=== PATIENT | female | born 1930 | race Caucasian/White ===

== ENCOUNTER 2017-08-11 13:26 | Inpatient (IN) | payer MEDICARE ==
[2017-08-11 14:25] LABS: #Basophils 0.1 thou/uL (0.0-0.2); #Eosinphils 0.2 thou/uL (0.0-0.7); #Lymphocytes 1.6 thou/uL (1.20-3.40); #Monocytes 0.8 thou/uL (0.11-0.59); #Neutrophils 8.4 thou/uL (1.40-6.50); %Basophils 0.9 % (0.0-1.0); %Eosinophils 1.4 % (0.0-10.0); %Lymphocytes 14.3 % (21.0-51.0); %Monocytes 7.5 % (0.0-10.0); %Neutrophils 75.9 % (42.0-75.0); Hemoglobin 12.1 g/dL (12.0-16.0); Mean Corpuscular HGB CONC 33.8 g/dL (32.0-36.0); Mean Corpuscular Hemoglobin 31.2 pg (27.0-31.0); Mean Corpuscular Volume 92.3 fl (81.0-99.0); Mean Platelet Volume 6.3 fL (7.4-10.4); Platelet Count 315 thou/uL (130-400); RBC Distribution Width 13.1 % (11.5-14.5); Red Blood Cell (RBC) Count 3.88 mill/uL (4.20-5.40); White Blood Cell (WBC) Count 11.1 thou/uL (4.8-10.8)
[2017-08-11 14:51] LABS: ALT (SGPT) 7 U/L (8-55); AST (SGOT) 19 U/L (5-34); Albumin 3.6 g/dL (3.4-4.8); Alkaline Phosphatase 183 U/L (40-150); Anion Gap 18 mmol/L (10-20); BUN (Urea Nitrogen) 35 mg/dL (9.8-20.1); Bilirubin, Total 0.4 mg/dL (0.2-1.2); Calc. Creatinine Clearance 0 mL/min (70-130); Calcium 9.4 mg/dL (7.8-10.44); Carbon Dioxide 22 mmol/L (23-31); Chloride 97 mmol/L (98-107); Estimated GFR-MDRD 26; Globulin 4.6 g/dL (2.4-3.5); Glucose 126 mg/dL (83-110); Potassium 4.6 mmol/L (3.5-5.1); Protein, Total 8.2 g/dL (6.0-8.3); Sodium 132 mmol/L (136-145)
[2017-08-11 14:56] LABS: CKMB 2.5 ng/mL (0-6.6); Troponin I 0.076 ng/mL (< 0.028)
[2017-08-11 14:57] LABS: Bilirubin Moderate (Negative); Blood, Urine Negative (Negative); Clarity CLOUDY (Clear); Glucose, Urine (Dipstick) Negative (Negative); Leukocyte Negative (Negative); Nitrite Negative (Negative); Protein, Urine (Dipstick) 30 mg/dL (Neg-Trace); Specific Gravity, Urine 1.019 (1.002-1.036)
[2017-08-11 14:58] LABS: Bacteria/HPF None Seen HPF (None Seen)
[2017-08-11 15:04] LABS: Yeast-AUWi Flag 93.3 (0-25.0)
[2017-08-11 15:15] LABS: Hyaline Casts/LPF 4-6 HYALINE CAST LPF (0-3 Hyaline); Other Casts/LPF 4-6 COARSE GRAN LPF (0-3 Hyaline); Yeast-All Forms None Seen HPF (None Seen)
[2017-08-11 15:16] LABS: Crystals/HPF 1+ AMORPH URATES HPF (Negative); Renal Epithelial None Seen HPF (0-3); Transitional Epithelial NONE SEEN HPF (0-3)
--- NOTE | 2017-08-11 15:19 | RAD ---
CHEST 1 VIEW: Date: 08/11/17 HISTORY: Weakness. FINDINGS: Cardiac silhouette and pulmonary vasculature are unremarkable. Lungs are hyperinflated. Mediastinum i s midline with aortic calcification. There is no lobar consolidation or evidence of pneumothorax. Car diac monitor leads overlie the chest. IMPRESSION: 1. COPD. 2 Atherosclerosis. POS: [facility]
[2017-08-11 18:12] LABS: Troponin I 0.077 ng/mL (< 0.028)
[2017-08-11] MEDS ORDERED: Sodium Chloride 0.9% 1,000 ML IV SCH (20:44)
[2017-08-11] MEDS ORDERED: Ondansetron ODT 4 MG TAB SL PRN (20:44)
[2017-08-11] MEDS ORDERED: Ondansetron HCl/PF 4 MG/2 ML Vial IVP PRN ×2 (20:44→20:50)
[2017-08-11 20:46] LABS: Troponin I 0.077 ng/mL (< 0.028)
[2017-08-11] MEDS ORDERED: Morphine 4 MG/ML VIAL SLOW IVP PRN (20:50)
[2017-08-11] MEDS ORDERED: Zolpidem Tartrate 5 MG TAB PO PRN (20:50)
[2017-08-11] MEDS ORDERED: Famotidine/PF 20 mg/2ml Vial SLOW IVP SCH (21:00)
[2017-08-11] MEDS: Sodium Chloride 0.9% 1,000 ML IV SCH (21:27)
[2017-08-11] MEDS: Docusate 100 MG CAP PO SCH (21:27)
[2017-08-11] MEDS: Famotidine 20 MG TAB PO SCH (21:27)
[2017-08-11 23:10] VITALS: BMI 13.1
[2017-08-12] MEDS: Sodium Chloride 0.9% 1,000 ML IV SCH ×2 (04:23→16:16)
[2017-08-12 05:40] LABS: Anion Gap 10 mmol/L (10-20); BUN (Urea Nitrogen) 25 mg/dL (9.8-20.1); Calc. Creatinine Clearance 16 mL/min (70-130); Calcium 8.6 mg/dL (7.8-10.44); Carbon Dioxide 25 mmol/L (23-31); Chloride 105 mmol/L (98-107); Estimated GFR-MDRD 36; Glucose 79 mg/dL (83-110); Potassium 4.2 mmol/L (3.5-5.1); Sodium 136 mmol/L (136-145)
--- NOTE | 2017-08-12 07:58 | HP ---
HISTORY OF PRESENT ILLNESS: Mrs. Soto is an 86-year-old woman. She has been experiencing some poor appetite, generalized weakness for the last 2 week also. This morning, she was even weake r. She was brought to the ER by her niece. She was evaluated and was noticed to be very dehydrated. In view of this fact, she has been admitted for management. PAST MEDICAL HISTORY: Remarkable for rheumatoid arthritis. She denies any hypertension, diabetes, h eart disease, lung disease, liver disease. She had multiple surgeries most of them in the orthopedic setting. ALLERGIES: She claims to have allergy to ACETAMINOPHEN. SOCIAL HISTORY: She does have a past history of cigarette smoking. She denies ETOH abuse. Denies d rug abuse. FAMILY HISTORY: Reviewed and is not contributory. MEDICATIONS: Prior to admission she was on Aleve and also she takes low dose aspirin daily. REVIEW OF SYSTEMS: CONSTITUTIONAL: She denies any fever. Admits to generalized weakness. HEENT: No headache, no ocular pain, no sore throat. no epistaxis. NECK: No neck pain, no neck stiffness. CARDIOVASCULAR: No shortness of breath with chest pain. PULMONARY: No coughing. GASTROINTESTINAL: No nausea, no vomiting, no diarrhea. GENITOURINARY: No dysuria, no hematuria. ENDOCRINOLOGY: No heat or cold intolerance. No polyuria, polydipsia, polyphagia. MUSCULOSKELETAL: Admits to arthritis. HEMATOLOGY: No abnormal bleeding, no ecchymosis. LYMPHATICS: No palpable lymphadenopathy, no painful lymphadenopathy. SKIN: No rash, no itching. ALLERGIES: No hayfever. NEUROLOGICAL: No seizure. PSYCHIATRIC: No anxiety or no depression. PHYSICAL EXAMINATION: GENERAL: At the current time, she is alert, responsive, comorbidities in no distress. VITAL SIGNS: Temperature of 98, pulse rate 72 regular, respiratory rate 18, and blood pressure 177/9 4. HEENT: Her head is normocephalic and atraumatic. Eyes: Her pupils are equal and reactive. Ears an d Nose: normal. Oral mucosa is somewhat dry. SKIN: She has also had poor skin turgor. Pharyngeal area is clear. NECK: Supple. There is no distention of the jugular vein. No lymphadenopathy felt. Thyroid gland not palpable. There is no carotid bruit. CHEST: Symmetrical with regular S1 and S2. LUNGS: Clear. ABDOMEN: Soft. Bowel sounds are heard. Could not appreciate any organomegaly. LYMPHS: No edema. LABORATORY DATA: CBC showed WBC 11.1, hemoglobin of 12.1, hematocrit of 35.8, MCV of 92.3, platelet of 315. Chemistry and electrolytes show sodium of 132, potassium 4.6, chloride 97, CO2 of 22, BUN 35 , creatinine 1.82, glucose 126, calcium 9.4, total bilirubin 0.4, AST 19, ALT 7, alkaline phosphatase 183, troponin was noticed to be elevated at 0.07, albumin 3.6, globulin 4.6. Urinalysis was reviewe d and is consistent with contamination. She also notices some granular cast and some hyaline casts. Chest x-ray was reported to be suggestive of COPD plus arteriosclerosis. Cardiac silhouette and pulm onary vasculature were normal. ASSESSMENT AND PLAN: This is an 86-year-old old woman with history of rheumatoid arthritis , who was brought to this facility because of failure to thrive, found to be dehydrated with elevated BUN and creatinine, most likely acute tubular necrosis in the setting of dehydration. Her troponin was noticed to be elevated. She does not have any cardiac symptoms at this time, most likely due to elevated troponin is secondary to her abnormal kidney function. In any case, we will follow serial t roponins. We will hydrate her. We will monitor chemistry and lytes. We will keep her in the hospit al for observation. She was also noticed to have a sacral wound. Wound Care will be consulted.
[2017-08-12] MEDS ORDERED: Prevnar 13-Val Conj/PF 0.5 ML SYRINGE IM ONE (09:00)
[2017-08-12] MEDS: Docusate 100 MG CAP PO SCH ×2 (09:19→20:56)
[2017-08-12] MEDS: Enoxaparin Sodium 30 MG/0.3 ML SYRINGE SC SCH (09:19)
--- NOTE | 2017-08-12 12:46 | PDOC.PN ---
- Subjective Encounter Start Date: 08/12/17 Encounter Start Time: 14:52 cc: ftt Sub: Pt denies dyspnea - Objective Resuscitation Status: Resuscitation Status FULL:Full Resuscitation Vital Signs & Weight: Vital Signs (12 hours) Temp Pulse Resp BP BP Pulse Ox 08/12/17 11:50 96.9 F L 83 16 161/73 H 95 08/12/17 09:13 98.2 F 79 16 181/89 H 181/89 H 96 08/12/17 04:08 98.4 F 80 20 142/73 H Weight Admit Weight 77 lb Weight 77 lb I&O: 08/11/17 08/12/17 08/13/17 06:59 06:59 06:59 Intake Total 932 Balance 932 Result Diagrams: 08/11/17 14:17 08/12/17 05:01 Phys Exam - Physical Examination Constitutional: NAD HEENT: moist MMs Neck: no JVD Respiratory: no wheezing, no rales, no rhonchi Cardiovascular: RRR, no significant murmur, no rub Gastrointestinal: soft, non-tender, positive bowel sounds Musculoskeletal: no edema Neurological: non-focal, moves all 4 limbs Psychiatric: A&O x 3 Skin: no rash Dx/Plan - Plan Pt is 86 yrs old male 1. RHONDA: Baseline creatinine around 1.4 RHONDA appears due to hypovolemia, decrease po intake continue MIV fluids Creatinine improving Strict I&O Avoid NSAID, contrast, nephrotoxic medication 2. Abnormal cardiac enzymes: Will consult cardio to evaluate patient Monitor for now check 2d echo to evaluate lv function 3. FTT: Will consult PT/OT to evaluate patient Might need placement case d/w pt & RN
[2017-08-12] MEDS: Famotidine 20 MG TAB PO SCH (20:56)
--- NOTE | 2017-08-13 00:41 | CON ---
DATE OF CONSULTATION: 08/12/2017 HISTORY OF PRESENT ILLNESS: Kennedi Soto is an 86-year-old white female who was brought to the emergency room by her niece. She has been having a poor appetite, generalized weakness for approximately 2 weeks. Ms. Soto does not recall this in general. She denies any chest pain, shortness of breath, or palpitations. She has been found to be somewhat volume depleted and had abnormal troponin I's. PAST MEDICAL HISTORY: Hypertension in the past on medications, but apparently none recently. She has rheumatoid arthritis. She denies history of diabetes or hypercholesterolemia. OPERATIONS: Multiple orthopedic surgeries. MEDICATIONS: At home naproxen 220 b.i.d. ALLERGIES: ACETAMINOPHEN. SOCIAL HISTORY: She smoked in the distant past. She does not drink. FAMILY HISTORY: Negative for coronary artery disease. REVIEW OF SYSTEMS: Twelve-point review of systems, otherwise unremarkable. PHYSICAL EXAMINATION: Blood pressure 143/68 up to 181/89, pulse is 75. She is in normal sinus rhythm, except there is an episode of supraventricular tachycardia for 10 beats at approximately 150 per minute. HEENT-PERRL. Chest- clear. Cardiac S1, S2 normal. Abdomen-normal bowel sounds. Ext-no edema. Neuro-intact. LABORATORY DATA: Hemoglobin 12.1, hematocrit 35.8, white count 11,100, platelets 315,000. Sodium 136, potassium 4.2, chloride 105, carbon dioxide 25, BUN 25, creatinine 1.9. On admission, her BUN was 35, creatinine 1.82. Troponin I is up to 0.090. IMPRESSION: 1. Elevated troponin I, probably due to acute kidney injury. 2. Volume depletion with acute kidney injury. 3. Hypertension, untreated. 4. Supraventricular tachycardia versus paroxysmal atrial tachycardia. RECOMMENDATIONS: Echocardiogram will be performed to assess left ventricular function. She will be started on low-dose beta-barbara for her blood pressure and her atrial arrhythmias. I do not feel any further evaluation is warranted for her mildly elevated troponin I in this asymptomatic lady. LEIDY
[2017-08-13 05:59] LABS: Anion Gap 8 mmol/L (10-20); BUN (Urea Nitrogen) 16 mg/dL (9.8-20.1); Calc. Creatinine Clearance 20 mL/min (70-130); Calcium 8.6 mg/dL (7.8-10.44); Carbon Dioxide 26 mmol/L (23-31); Chloride 107 mmol/L (98-107); Estimated GFR-MDRD 46; Glucose 81 mg/dL (83-110); Potassium 4.3 mmol/L (3.5-5.1); Sodium 137 mmol/L (136-145)
--- NOTE | 2017-08-13 07:52 | PQF ---
CLINICAL DOCUMENTATION IMPROVEMENT CLARIFICATION FORM: ICD-10 Updated PLEASE DO AN ADDENDUM TO THE PROGRESS NOTE WITH ANY DOCUMENTATION UPDATES OR ADDITIONS AND CARRY THROUGH TO DC SUMMARY. THANK YOU. Date: 08/13 ATTN: DR. BAIRON FOREMAN Please exercise your independent, professional judgment in responding to the clarification form. Clinical indicators are provided on the bottom of this form for your review. Please check appropriate box(s): [ x] Protein Calorie Malnutrition: [ ] Mild [ x] Moderate [ ] Severe [ ] Other Malnutrition (please specify) __ [ ] Underweight without malnutrition [ ] Cachexia [ ] Other diagnosis [ ] Unable to determine CLINICAL INDICATORS - SIGNS / SYMPTOMS / LABS BMI: 13.2 ER PHYSICIAN DOCUMENTATION 08/11: ADULT FTT, CACHETIC DEBT COUNSELOR ASSESSMENT 08/12: TRIGGERED FOR LOW BMI; PATIENT STATES SHE IS NEVER HUNGRY. UBW (USUAL BODY WEIGHT) IS 110 LBS, -30% WEIGHT CHANGED FROM UBW; PT IS VERY THIN, MUSCLE WASTING APPARENT TO FACE AND HANDS NURSING MEAL INTAKE DOCUMENTATION 08/12: 25% OF BREAKFAST, LUNCH & DINNER INTAKE RISK FACTORS: ADULT FTT -30% WEIGHT CHANGE IN UBW WEAKNESS STAGE III SACRAL PRESSURE ULCER TREATMENT: DEBT COUNSELOR CONSULT RECOMMENDATION FOR ENSURE ENLIVE TID & APPETITE STIMULANT Moderate Malnutrition (in acute illness) Energy Intake: <75% of estimated energy requirement for > 7 days Weight Loss: 1-2%/1 week; 5%/ 1 month; 7.5%/3 months Other: mild body fat loss; mild muscle mass loss; mild fluid accumulation; Severe Malnutrition (in acute illness) Energy Intake: < 50% of estimated energy requirement for > 5 days Weight Loss: >1-2%/1 week; >5%/1 month; >7.5%/3 months Other: moderate body fat loss; moderate muscle mass loss; moderate- severe fluid accumulation; measurably reduced meter readers supervisor strength Moderate Malnutrition (in chronic illness) Energy Intake: <75% of estimated energy requirement for >1 month Weight Loss: 5%/1 month; 7.5%/3 months; 10%/6 months; 20%/1 year Other: mild body fat loss; mild muscle mass loss; mild fluid accumulation Severe Malnutrition (in chronic illness) Energy Intake: <75% of estimated energy requirement for >1 month Weight Loss: >5%/1 month; >7.5%/3 months; >10%/6 months; >20%/1 year Other: severe body fat loss; severe muscle mass loss; severe fluid accumulation; measurably reduced meter readers supervisor strength THANK YOU! Claire (This form is maintained as a part of the permanent medical record) 2014 [email or web address]. All Rights Reserved Claire Munguia RN, BSN [email or web address] Office: [phone] [facility] CAMPUS[facility]by
--- NOTE | 2017-08-13 08:01 | PQF ---
CLINICAL DOCUMENTATION IMPROVEMENT CLARIFICATION FORM: ICD-10 Updated PLEASE DO AN ADDENDUM TO THE PROGRESS NOTE WITH ANY DOCUMENTATION UPDATES OR ADDITIONS AND CARRY THROUGH TO DC SUMMARY. THANK YOU. DATE: 08/13 ATTN: DR. BAIRON FOREMAN Please exercise your independent, professional judgment in responding to the clarification form. Clinical indicators are provided on the bottom of this form for your review. Please check appropriate box(s): x_ I (concur) with the Wound Care findings as stated below. [ ] Pressure Ulcer: (Stage I: Erythema; Stage II: Partial thickness; Stage III : Full thickness; Stage IV: Necrosis to muscle/bone) [ ] Location: POA: [ ] Yes [ ] No[ ] Unable to determine Stage (I to IV): (Left Right Bilateral N/A ) [ ] Other diagnosis [ ] Unable to determine In addition, please specify: Present on Admission (POA): [ ] Yes [ ] No [ ] Unable to determine For continuity of documentation, please document condition throughout progress notes and discharge summary. Thank You. CLINICAL INDICATORS - SIGNS / SYMPTOMS / LABS WOUND CARE CONSULT DOCUMENTATION 08/12: STAGE III SACRAL PRESSURE ULCER RISK FACTORS: FAILURE TO THRIVE -30% WEIGHT LOSS FROM USUAL BODY WEIGHT OF 110 LBS BMI: 13.2 TREATMENTS: WOUND CARE CONSULT & DAILY TREATMENT SPECIALTY MATTRESS TURN Q2 HRS THANK YOU! Claire (This form is maintained as a part of the permanent medical record) 2014 [employer]. All Rights Reserved Claire Munguia RN, BSN [email or web address] Office: [phone] [facility]
[2017-08-13] MEDS: Docusate 100 MG CAP PO SCH ×2 (08:47→21:32)
[2017-08-13] MEDS: Enoxaparin Sodium 30 MG/0.3 ML SYRINGE SC SCH (08:47)
[2017-08-13] MEDS: Sodium Chloride 0.9% 1,000 ML IV SCH ×2 (12:56→13:58)
--- NOTE | 2017-08-13 16:32 | PDOC.PN ---
- Subjective Encounter Start Date: 08/13/17 Encounter Start Time: 11:15 Subjective: pt up in bed appears confused - Objective Resuscitation Status: Resuscitation Status FULL:Full Resuscitation Vital Signs & Weight: Vital Signs (12 hours) Temp Pulse Pulse Pulse Pulse Resp BP 08/13/17 11:30 98.0 F 74 16 08/13/17 10:55 88 77 85 180/92 H 08/13/17 07:24 97.8 F 81 14 BP BP BP Pulse Ox Pulse Ox 08/13/17 11:30 146/73 H 99 08/13/17 10:55 177/87 H 189/92 H 95 08/13/17 07:24 135/65 97 Weight Admit Weight 77 lb Weight 77 lb I&O: 08/12/17 08/13/17 08/14/17 06:59 06:59 06:59 Intake Total 932 1966 Balance 932 1966 Result Diagrams: 08/11/17 14:17 08/13/17 05:30 Phys Exam - Physical Examination HEENT: PERRLA, moist MMs Neck: no nodes, no JVD Respiratory: no wheezing, no rales Cardiovascular: RRR, no significant murmur Gastrointestinal: soft, non-tender Musculoskeletal: no edema Dx/Plan - Plan * . 1. RHONDA: Baseline creatinine around 1.4 RHONDA appears due to hypovolemia, decrease po intake continue MIV fluids Creatinine improving Strict I&O Avoid NSAID, contrast, nephrotoxic medication 2. Abnormal cardiac enzymes: pt had echo which indicated ef of 60-65% will order some labs in am 3. FTT: Will consult PT/OT to evaluate patient Might need placement Review of Systems - Review of Systems Other: unable to determin - Medications/Allergies Allergies/Adverse Reactions: Allergies Allergy/AdvReac Type Severity Reaction Status Date / Time acetaminophen [From Tylenol] Allergy Verified 09/22/14 10:35 Medications: Current Medications Docusate Sodium (Colace) 100 mg PO BID [facility] Last Admin: 08/13/17 08:47 Dose: 100 mg Famotidine (Pepcid) 20 mg PO QPM [facility] Last Admin: 08/12/17 20:56 Dose: 20 mg Heparin Sodium (Porcine) (Heparin) 5,000 units SC BID [facility] Sodium Chloride (Normal Saline 0.9%) 1,000 mls @ 50 mls/hr IV .Q20H [facility] Last Admin: 08/13/17 13:58 Dose: 1,000 mls Metoprolol Succinate (Toprol Xl) 50 mg PO DAILY [facility] Last Admin: 08/13/17 08:47 Dose: 50 mg Morphine Sulfate (Morphine) 1 mg SLOW IVP Q4H PRN PRN Reason: Severe Pain (7-10) Ondansetron HCl (Zofran) 4 mg IVP Q6H PRN PRN Reason: Nausea/Vomiting Sodium Chloride (Flush - Normal Saline) 10 ml IVF Q12HR [facility] Last Admin: 08/13/17 10:35 Dose: Not Given Sodium Chloride (Flush - Normal Saline) 10 ml IVF PRN PRN PRN Reason: Saline Flush Zolpidem Tartrate (Ambien) 5 mg PO HSPRN PRN PRN Reason: Insomnia
[2017-08-13] MEDS: Heparin 5,000 UNITS/ML VIAL SC SCH (21:32)
[2017-08-13] MEDS: Famotidine 20 MG TAB PO SCH (21:32)
[2017-08-13] MEDS: Melatonin 3 MG TAB PO SCH (21:32)
[2017-08-14 04:06] LABS: #Basophils 0.2 thou/uL (0.0-0.2); #Eosinphils 0.4 thou/uL (0.0-0.7); #Lymphocytes 1.8 thou/uL (1.20-3.40); #Monocytes 0.7 thou/uL (0.11-0.59); #Neutrophils 7.3 thou/uL (1.40-6.50); %Basophils 1.6 % (0.0-1.0); %Eosinophils 4.3 % (0.0-10.0); %Monocytes 7.1 % (0.0-10.0); %Neutrophils 69.9 % (42.0-75.0); Hemoglobin 10.5 g/dL (12.0-16.0); Mean Corpuscular HGB CONC 32.8 g/dL (32.0-36.0); Mean Corpuscular Hemoglobin 31.2 pg (27.0-31.0); Mean Corpuscular Volume 95.1 fl (81.0-99.0); Mean Platelet Volume 6.4 fL (7.4-10.4); Platelet Count 208 thou/uL (130-400); RBC Distribution Width 13.2 % (11.5-14.5); Red Blood Cell (RBC) Count 3.37 mill/uL (4.20-5.40); White Blood Cell (WBC) Count 10.4 thou/uL (4.8-10.8)
[2017-08-14 04:19] LABS: Anion Gap 12 mmol/L (10-20); BUN (Urea Nitrogen) 14 mg/dL (9.8-20.1); Calc. Creatinine Clearance 21 mL/min (70-130); Calcium 8.7 mg/dL (7.8-10.44); Carbon Dioxide 22 mmol/L (23-31); Chloride 106 mmol/L (98-107); Estimated GFR-MDRD 49; Glucose 81 mg/dL (83-110); Potassium 3.9 mmol/L (3.5-5.1); Sodium 136 mmol/L (136-145)
[2017-08-14] MEDS: Sodium Chloride 0.9% 1,000 ML IV SCH (05:31)
[2017-08-14] MEDS: Docusate 100 MG CAP PO SCH ×2 (09:18→20:28)
[2017-08-14] MEDS: Heparin 5,000 UNITS/ML VIAL SC SCH ×2 (09:19→20:29)
--- NOTE | 2017-08-14 15:13 | PDOC.PN ---
- Subjective Encounter Start Date: 08/14/17 Encounter Start Time: 11:45 Subjective: pt up in bed wants to go home - Objective Resuscitation Status: Resuscitation Status DNR:Do Not Resuscitate Vital Signs & Weight: Vital Signs (12 hours) Temp Pulse Resp BP Pulse Ox 08/14/17 11:00 97.7 F 62 16 129/62 95 08/14/17 07:33 97.5 F L 78 16 97 08/14/17 07:16 97.5 F L 78 16 164/78 H 97 08/14/17 05:39 97.6 F 70 16 156/78 H 97 Weight Admit Weight 77 lb Weight 77 lb I&O: 08/13/17 08/14/17 08/15/17 06:59 06:59 06:59 Intake Total 1966 175 Balance 1966 175 Result Diagrams: 08/14/17 04:00 08/14/17 04:00 Phys Exam - Physical Examination HEENT: PERRLA Neck: no nodes, no JVD Respiratory: no wheezing, no rales Cardiovascular: RRR, no significant murmur Gastrointestinal: soft, non-tender Musculoskeletal: no edema, pulses present Neurological: non-focal Dx/Plan - Plan * 1. RHONDA: resolved RHONDA appears due to hypovolemia, decrease po intake pt eating fluids discontinued Creatinine improving Strict I&O Avoid NSAID, contrast, nephrotoxic medication 2. Abnormal cardiac enzymes: pt had echo which indicated ef of 60-65% labs stable 3) RA: stable pt not on any meds spoke with pt's niece about pt's improvement, who states that bb makes her very confused, she is currently doing well and explained to her that her confusion was most likely delirium which is improving. She does not want her on a bb. will continue to monitor pt. Pt will go to snf. Also discussed with niece that pt will not be able to live alone and will need to live with someone. . Review of Systems - Review of Systems Eyes: negative: Pain, Vision Change, Conjunctivae Inflammation, Eyelid Inflammation, Redness, Other ENT: negative: Ear Pain, Ear Discharge, Nose Pain, Nose Discharge, Nose Congestion, Mouth Pain, Mouth Swelling, Throat Pain, Throat Swelling, Other Respiratory: negative: Cough, Dry, Shortness of Breath, Hemoptysis, SOB with Excertion, Pleuritic Pain, Sputum, Wheezing Cardiovascular: negative: chest pain, palpitations, orthopnea, paroxysmal nocturnal dyspnea, edema, light headedness, other Gastrointestinal: negative: Nausea, Vomiting, Abdominal Pain, Diarrhea, Constipation, Melena, Hematochezia, Other Genitourinary: negative: Dysuria, Frequency, Incontinence, Hematuria, Retention , Other - Medications/Allergies Allergies/Adverse Reactions: Allergies Allergy/AdvReac Type Severity Reaction Status Date / Time acetaminophen [From Tylenol] Allergy Verified 09/22/14 10:35 Medications: Current Medications Docusate Sodium (Colace) 100 mg PO BID [facility] Last Admin: 08/14/17 09:18 Dose: 100 mg Famotidine (Pepcid) 20 mg PO QPM [facility] Last Admin: 08/13/17 21:32 Dose: 20 mg Heparin Sodium (Porcine) (Heparin) 5,000 units SC BID [facility] Last Admin: 08/14/17 09:19 Dose: 5,000 units Melatonin (Melatonin) 3 mg PO HS [facility] Last Admin: 08/13/17 21:32 Dose: 3 mg Metoprolol Succinate (Toprol Xl) 50 mg PO DAILY [facility] Last Admin: 08/14/17 09:18 Dose: 50 mg Ondansetron HCl (Zofran) 4 mg IVP Q6H PRN PRN Reason: Nausea/Vomiting Quetiapine Fumarate (Seroquel) 12.5 mg PO HS PRN PRN Reason: Agitation Sodium Chloride (Flush - Normal Saline) 10 ml IVF Q12HR [facility] Last Admin: 08/14/17 09:19 Dose: Not Given Sodium Chloride (Flush - Normal Saline) 10 ml IVF PRN PRN PRN Reason: Saline Flush
[2017-08-14] MEDS: Famotidine 20 MG TAB PO SCH (20:28)
[2017-08-14] MEDS: Melatonin 3 MG TAB PO SCH (22:14)
[2017-08-15] MEDS: Docusate 100 MG CAP PO SCH (09:11)
[2017-08-15] MEDS: Heparin 5,000 UNITS/ML VIAL SC SCH (09:11)
[2017-08-15 11:23] VITALS: BP 133/78; TEMP 97.1
--- NOTE | 2017-08-16 11:23 | DIS ---
DATE OF ADMISSION: 08/11/2017 DATE OF DISCHARGE: 08/15/2017 DISCHARGE DIAGNOSES: Were as the followin. Dehydration. 2. Acute kidney injury. 3. Abnormal cardiac enzymes. 4. Acute delirium. 5. Rheumatoid arthritis. HOSPITAL COURSE: Patient is an 86-year-old female who initially presented to the hospital with worse pepito generalized weakness, poor appetite for the past couple of weeks. The patient lives by herself. The patient was brought into the ER by her niece. Upon initial evaluation, the patient was found t o be very dehydrated and was put on some IV fluids. She also was found to have some mildly elevated troponins. Patient at that time was seen by Cardiology and underwent an echocardiogram. The patient also had few beats of supraventricular tachycardia versus paroxysmal atrial tachycardia. Patient's echocardiogram indicated an EF of 60%-65% with mild mitral and tricuspid regurgitation. The patient was put on beta barbara for supraventricular tachycardia. The patient's mental status continued to i mprove; however, she did have couple of days of acute delirium and upon speaking to the niece, the ni nicolette thought that it was most likely secondary to starting of the metoprolol. However, prior to that, patient had been prescribed some pain meds and also some Ativan. I am not sure if patient received it, but which also could cause the patient to have confusion in addition to change of her environment and her dehydration. I convinced patient's needs to continue with the beta barbara in regards to he r supraventricular tachycardia. Also, patient's creatinine continued to improve and she was sent to rehab for strengthening. DISCHARGE MEDICATIONS: As the following: She was on metoprolol 50 mg daily, Pepcid 20 mg at bedtime , melatonin 3 mg p.o. at bedtime and Colace 100 mg p.o. b.i.d. The patient will follow up with her P CP. PHYSICAL EXAMINATION: VITAL SIGNS: Temperature of 97.6, heart rate of 77, 16, 97% on room air, 133/78. GENERAL: She is awake, alert, and oriented x3. Does not appear in distress. CVS: S1, S2 present. No murmurs, rubs or gallops. LUNGS: Clear to auscultation. No rhonchi or wheezes noted. ABDOMEN: Soft and nontender. Bowel sounds are present. EXTREMITIES: No edema. Pedal pulses present x2.
--- NOTE | 2017-09-05 13:12 | PQF ---
NATHANAEL ALCAZAR KARISHMA MD [id number] CLINICAL DOCUMENTATION IMPROVEMENT CLARIFICATION FORM: ICD-10 Updated PLEASE DO AN ADDENDUM TO THE PROGRESS NOTE WITH ANY DOCUMENTATION UPDATES OR ADDITIONS AND CARRY THROUGH TO DC SUMMARY. THANK YOU. DATE: 09-05-17 ATTN: DR. FOREMAN Please exercise your independent, professional judgment in responding to the clarification form. Clinical indicators are provided on the bottom of this form for your review Diagnosis: STAGE III SACRAL PRESSURE ULCER Present on Admission (POA): [x ] Yes [ ] No [ ] Unable to determine Coding guidelines require hospitals to identify whether a diagnosis was present on admission (POA) or not. To accurately assign the appropriate POA indicator, this information must be clearly documented within the medical record. CLINICAL INDICATORS - SIGNS / SYMPTOMS / LABS WOUND CARE CONSULT DOCUMENTATION 08/12: STAGE III SACRAL PRESSURE ULCER RISK FACTORS: FAILURE TO THRIVE -30% WEIGHT LOSS FROM USUAL BODY WEIGHT OF 110 LBS BMI: 13.2 TREATMENTS: WOUND CARE CONSULT & DAILY TREATMENT SPECIALTY MATTRESS TURN Q2 HRS THANK YOU, CAPRICE (This form is maintained as a part of the permanent medical record) 2015 [employer]. All Rights Reserved Caprice Cowan RN, BS [email or web address] [employer] [facility]
== END 2017-08-15 11:39 | disposition swing bed (61) | DRG 682 ==
LOC: ERS 13:26 → 2NO 20:37 → T4-B 08-13 14:33 → T4-A 08-13 15:33
PROVIDERS: ADMIT Hospitalist; ATTEND Hospitalist
DX: N17.0 Acute kidney failure with tubular necrosis (principal); L89.153 Pressure ulcer of sacral region, stage 3; E44.0 Moderate protein-calorie malnutrition; R64 Cachexia; I47.1 Supraventricular tachycardia; Z68.1 Body mass index [BMI] 19.9 or less, adult; E86.0 Dehydration; M06.9 Rheumatoid arthritis, unspecified; R62.7 Adult failure to thrive; Z87.891 Personal history of nicotine dependence
CPT/HCPCS: 36415; 51701; 71045; 80048; 80053; 81003; 81015; 82140; 82553; 83880; 84484; 85025; 87086; 93005; 93306; 96360; 96361; A4216; A4353; G8978-GP-CL; G8979-GP-CJ; G8987-GO-CL; G8988-GO-CI; J1644; J1650

== ENCOUNTER 2019-05-03 07:24 | Emergency (ER) | payer MEDICARE ==
[2019-05-03 08:20] LABS: Bilirubin Negative (Negative); Blood, Urine Small (Negative); Glucose, Urine (Dipstick) Negative (Negative); Leukocyte Moderate (Negative); Nitrite Positive (Negative); Protein, Urine (Dipstick) 100 mg/dL (Neg-Trace); Urobilinogen 0.2 mg/dL (Less than 2)
[2019-05-03 08:26] LABS: #Eosinphils 0.5 thou/uL (0.0-0.7); #Lymphocytes 3.4 thou/uL (1.20-3.40); #Monocytes 1.1 thou/uL (0.11-0.59); #Neutrophils 9.3 thou/uL (1.40-6.50); %Basophils 0.3 % (0.0-1.0); %Eosinophils 3.5 % (0.0-10.0); %Lymphocytes 23.7 % (21.0-51.0); %Monocytes 7.6 % (0.0-10.0); %Neutrophils 64.9 % (42.0-75.0); Hemoglobin 10.8 g/dL (12.0-16.0); Mean Corpuscular HGB CONC 32.9 g/dL (32.0-36.0); Mean Corpuscular Hemoglobin 31.4 pg (27.0-31.0); Mean Corpuscular Volume 95.4 fL (78.0-98.0); Mean Platelet Volume 6.8 fL (7.4-10.4); Platelet Count 320 thou/uL (130-400); RBC Distribution Width 13.4 % (11.5-14.5); Red Blood Cell (RBC) Count 3.44 mill/uL (4.20-5.40); White Blood Cell (WBC) Count 14.2 thou/uL (4.8-10.8)
[2019-05-03 08:29] LABS: Bacteria/HPF 3+ HPF (None Seen); Clarity Slightly Cloudy (Clear); Squamous Epithelial 0-3 HPF (0-3)
[2019-05-03] MEDS ORDERED: cefTRIAXone\\ROCEPHIN 1 GM VIAL ONE (08:43)
[2019-05-03 08:48] LABS: ALT (SGPT) 15 U/L (8-55); AST (SGOT) 26 U/L (5-34); Albumin 3.8 g/dL (3.4-4.8); Alkaline Phosphatase 162 U/L (40-110); Anion Gap 23 mmol/L (10-20); BUN (Urea Nitrogen) 34 mg/dL (9.8-20.1); Bilirubin, Total 0.7 mg/dL (0.2-1.2); Calc. Creatinine Clearance 0 mL/min (70-130); Calcium 9.4 mg/dL (7.8-10.44); Carbon Dioxide 17 mmol/L (23-31); Chloride 111 mmol/L (98-107); Estimated GFR-MDRD 25; Glucose 70 mg/dL (83-110); Potassium 4.3 mmol/L (3.5-5.1); Protein, Total 8.8 g/dL (6.0-8.3); Sodium 147 mmol/L (136-145)
== END 2019-05-03 11:48 | disposition home or self-care (01) ==
LOC: ERS 07:24
DX: E86.0 Dehydration (principal); E86.1 Hypovolemia; N39.0 Urinary tract infection, site not specified; R62.7 Adult failure to thrive; N28.9 Disorder of kidney and ureter, unspecified; K21.9 Gastro-esophageal reflux disease without esophagitis; I10 Essential (primary) hypertension; F03.90 Unspecified dementia, unspecified severity, without behavioral disturbance, psychotic disturbance, mood disturbance, and anxiety; M06.9 Rheumatoid arthritis, unspecified
CPT/HCPCS: 36415; 80053; 81003; 81015; 85025; 87077; 87086; 87186; 93005; 96365; 96367; J0696; J3370

== ENCOUNTER 2019-05-17 03:22 | Inpatient (IN) | payer MEDICARE ==
[2019-05-17 04:14] LABS: #Basophils 0.1 thou/uL (0.0-0.2); #Eosinphils 0.2 thou/uL (0.0-0.7); #Lymphocytes 3.1 thou/uL (1.20-3.40); #Neutrophils 12.9 thou/uL (1.40-6.50); %Basophils 0.4 % (0.0-1.0); %Eosinophils 1.1 % (0.0-10.0); %Lymphocytes 16.9 % (21.0-51.0); %Monocytes 10.9 % (0.0-10.0); %Neutrophils 70.7 % (42.0-75.0); Hemoglobin 13.5 g/dL (12.0-16.0); Mean Corpuscular HGB CONC 31.8 g/dL (32.0-36.0); Mean Corpuscular Hemoglobin 31.1 pg (27.0-31.0); Mean Corpuscular Volume 97.7 fL (78.0-98.0); Mean Platelet Volume 8.4 fL (7.4-10.4); Platelet Count 171 thou/uL (130-400); RBC Distribution Width 15.1 % (11.5-14.5); Red Blood Cell (RBC) Count 4.35 mill/uL (4.20-5.40); White Blood Cell (WBC) Count 18.2 thou/uL (4.8-10.8)
[2019-05-17] MEDS ORDERED: Morphine 2 MG/ML SYRINGE ONE (04:25)
[2019-05-17 05:26] LABS: CKMB 2.5 ng/mL (0-6.6)
[2019-05-17 05:31] LABS: ALT (SGPT) 16 U/L (8-55); AST (SGOT) 23 U/L (5-34); Albumin 3.5 g/dL (3.4-4.8); Alkaline Phosphatase 137 U/L (40-110); Anion Gap 23 mmol/L (10-20); BUN (Urea Nitrogen) 100 mg/dL (9.8-20.1); Bilirubin, Total 0.4 mg/dL (0.2-1.2); Calc. Creatinine Clearance 0 mL/min (70-130); Carbon Dioxide 16 mmol/L (23-31); Chloride 119 mmol/L (98-107); Estimated GFR-MDRD 10; Glucose 117 mg/dL (83-110); Potassium 4.3 mmol/L (3.5-5.1); Protein, Total 8.5 g/dL (6.0-8.3); Sodium 154 mmol/L (136-145)
[2019-05-17] MEDS ORDERED: Aspirin 300 MG Suppository ONE (05:54)
[2019-05-17 07:44] LABS: Troponin I 0.416 ng/mL (< 0.028)
--- NOTE | 2019-05-17 08:32 | RAD ---
Exam: Chest one view HISTORY:Altered mental status Comparison: 08/11/2017 FINDINGS: Evaluation is limited due to patient rightward rotation. Cardiac silhouette: Normal Aorta: Accentuation the aorta due to patient rotation. There is atherosclerosis. Pulmonary vessels: Normal Costophrenic angles: Clear LUNGS: No masses or consolidation. Lungs are hyperinflated. Chronic changes are noted. Pneumothorax: None Osseous abnormalities: Diffuse bone demineralization. IMPRESSION: Atherosclerosis. No acute cardiopulmonary process.
--- NOTE | 2019-05-17 10:49 | PDOC.EVN ---
Event Note - Event Note Event Note: Per discussion with niece, who is MPOA, family requests comfort care.
[2019-05-17 10:50] LABS: Troponin I 0.423 ng/mL (< 0.028)
[2019-05-17 10:58] VITALS: BMI 15.3
[2019-05-17] MEDS ORDERED: Morphine 2 MG/ML SYRINGE SLOW IVP PRN (11:19)
[2019-05-17] MEDS: Dextrose 5 % And 0.9 % NaCl 1,000 ML IV SCH (14:36)
--- NOTE | 2019-05-17 15:11 | PDOC.HHP ---
Hospitalist HPI - History of Present Illness reduced responsiveness and failure to thrive History of Present Illness: 88 year old female with medical history of severe dementia was brought by EMS by family request because patient is less responsive. Has been bedbound for the past three years and placed in hospice a few months ago but hospice was revoked after patient's function improved and she gained weight. For the past few days, family noticed that the patient hasn't been eating as well as she used to, wasn' t able to get out of bed or interact with them, so decided to bring the patient to the ED. ED Course: In the ED, cardiac workup was initiated and troponin was elevated. The patient was transfered to the medical floor for further care Hospitalist ROS - Review of Systems ROS unobtainable: due to mental status (patient barely responds to yes/no questions. Claimed to be in no pain.) - Medication Medications: Active Medications Generic Name Dose Route Start Last Admin Trade Name Freq PRN Reason Stop Dose Admin Dextrose/Sodium Chloride 1,000 mls @ 75 mls/hr 05/17/19 11:30 05/17/19 14:36 D5 0.9% Ns IV 1,000 mls .[id number] DAYANARA Administration Hospitalist History - Past Medical History Source: family, old records Cardiac: reports: HTN Pulmonary: reports: hypertension Gastrointestinal: reports: GERD Rheumatologic: reports: Rheumatoid arthritis - Past Surgical History Past Surgical History: reports: Total Hip Replacement, Total Knee Replacement - Family History Family History: reports: hypertension - Social History Smoking Status: Unknown if ever smoked Activity level: bed bound - Exam General Appearance: ill appearing General - other findings: emaciated, responds to stimuli, nonverbal Eye: PERRL ENT: normocephalic atraumatic, dry oral mucosa Neck: no JVD Heart: RRR, no murmur, no gallops, no rubs, normal peripheral pulses Respiratory: CTAB, no wheezes, no rales, no ronchi, normal chest expansion, no tachypnea, normal percussion Gastrointestinal: soft, non-tender, non-distended, normal bowel sounds, no palpable masses, no hepatomegaly, no splenomegaly, no bruit Extremities: no cyanosis, no clubbing, no edema Skin: tenting Skin - other findings: stage I decubitus ulcer, noninfected Neurological: negative: facial droop Psychiatric: somnolent Psychiatric - other findings: nonverbal so couldn't assess orientation Hospitalist Results - Labs Result Diagrams: 05/17/19 04:04 05/17/19 04:04 Lab results: WBC 18.2 thou/uL (4.8-10.8) H 05/17/19 04:04 Hgb 13.5 g/dL (12.0-16.0) 05/17/19 04:04 Hct 42.5 % (36.0-47.0) 05/17/19 04:04 MCV 97.7 fL (78.0-98.0) 05/17/19 04:04 Plt Count 171 thou/uL (130-400) 05/17/19 04:04 Neutrophils % 70.7 % (42.0-75.0) 05/17/19 04:04 Sodium 154 mmol/L (136-145) H 05/17/19 04:04 Potassium 4.3 mmol/L (3.5-5.1) 05/17/19 04:04 Chloride 119 mmol/L (98-107) H 05/17/19 04:04 Carbon Dioxide 16 mmol/L (23-31) L 05/17/19 04:04 BUN 100 mg/dL (9.8-20.1) H 05/17/19 04:04 Creatinine 4.10 mg/dL (0.6-1.1) H 05/17/19 04:04 Glucose 117 mg/dL (83-110) H 05/17/19 04:04 Calcium 9.0 mg/dL (7.8-10.44) 05/17/19 04:04 Total Bilirubin 0.4 mg/dL (0.2-1.2) 05/17/19 04:04 AST 23 U/L (5-34) 05/17/19 04:04 ALT 16 U/L (8-55) 05/17/19 04:04 Alkaline Phosphatase 137 U/L (40-110) H 05/17/19 04:04 CK-MB (CK-2) 2.5 ng/mL (0-6.6) 05/17/19 04:03 Troponin I 0.423 ng/mL (< 0.028) H* 05/17/19 10:17 Serum Total Protein 8.5 g/dL (6.0-8.3) H 05/17/19 04:04 Albumin 3.5 g/dL (3.4-4.8) 05/17/19 04:04 - Radiology Interpretation Chest x-ray Status: image reviewed by ms Hospitalist H&P A/P - Problem (1) Severe dementia Code(s): F03.90 - UNSPECIFIED DEMENTIA WITHOUT BEHAVIORAL DISTURBANCE Status: Acute Assessment and Plan: -has been bedbound for three years -previously in hospice; revoked after patient improved -less responsive for the past couple of days -prior to additional workup/treatment, [facility] was contacted and it was decided to initiate comfort care pending hospice placement -reduced responsiveness 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 on top of baseline severe dementia -morphine PRN pain -NS/D5 -likely transition to hospice tomorrow (2) Acute renal failure superimposed on chronic kidney disease Code(s): N17.9 - ACUTE KIDNEY FAILURE, UNSPECIFIED; N18.9 - CHRONIC KIDNEY DISEASE, UNSPECIFIED Status: Acute Qualifiers: Acute renal failure type: with other specified pathological lesion Chronic kidney disease stage: stage 3 (moderate) Qualified Code(s): N17.8 - Other acute kidney failure; N18.3 - Chronic kidney disease, stage 3 (moderate) Assessment and Plan: estimated GFR 10; baseline ~ 50 -likely prerenal due to reduced PO intake -NS/D5W @ 75cc/hr -considering general prognosis and decision to transition to comfort care, additional workup is futile (3) Elevated troponin Code(s): R74.8 - ABNORMAL LEVELS OF OTHER SERUM ENZYMES Status: Resolved Assessment and Plan: Trop ~ 0.4 and stable -likely type II NSTEMI due to severe dehydration -NS/D5W -No additional workup/treatment considering transition to comfort care -morphine PRN pain (4) Decubitus ulcer, stage I Code(s): L89.91 - PRESSURE ULCER OF UNSPECIFIED SITE, STAGE 1 Status: Chronic Qualifiers: Pressure injury location: buttock Laterality: unspecified laterality Qualified Code(s): L89.301 - Pressure ulcer of unspecified buttock, stage 1 Assessment and Plan: -noninfected decubitus ulcer, stage I, on buttocks -has been dressed in the ED -clear dressing -wound care consulted (5) Failure to thrive in adult Status: Chronic Assessment and Plan: -reported poor appetite for weeks/months; emaciated on physical exam -considering mental state, can't tolerate PO intake -NS/D5W
[2019-05-18] MEDS: Dextrose 5 % And 0.9 % NaCl 1,000 ML IV SCH ×2 (02:04→12:10)
--- NOTE | 2019-05-18 10:52 | PDOC.HOSPP ---
- Subjective Encounter Date: 05/18/19 Encounter Time: :20 Subjective: Patient not eating much. Can give her name, no other verbalization. Awaiting hospice evaluation. - Objective Vital Signs & Weight: Vital Signs (12 hours) Temp Pulse Resp BP Pulse Ox 05/18/19 08:00 96 05/18/19 07:26 97.5 F L 92 18 110/68 96 05/18/19 00:00 96 Weight Weight 83 lb 8.883 oz I&O: 05/17/19 05/18/19 05/19/19 06:59 06:59 06:59 Intake Total 990 Balance 990 Result Diagrams: 05/17/19 04:04 05/17/19 04:04 Hospitalist ROS - Review of Systems ROS unobtainable: due to mental status - Medication Medications: Active Medications Generic Name Dose Route Start Last Admin Trade Name Freq PRN Reason Stop Dose Admin Dextrose/Sodium Chloride 1,000 mls @ 75 mls/hr 05/17/19 11:30 05/18/19 02:04 D5 0.9% Ns IV 1,000 mls .[id number] DAYANARA Administration - Exam General - other findings: arousable, not following commands, very cachectic Heart: RRR, no murmur, no gallops, no rubs Respiratory: CTAB, no wheezes, no rales, no ronchi Gastrointestinal: soft, non-tender, non-distended, normal bowel sounds Musculoskeletal: generalized weakness, diffuse muscle atrophy Psychiatric: lethargic Hosp A/P (1) Severe dementia Code(s): F03.90 - UNSPECIFIED DEMENTIA WITHOUT BEHAVIORAL DISTURBANCE Status: Acute (2) Acute renal failure superimposed on chronic kidney disease Code(s): N17.9 - ACUTE KIDNEY FAILURE, UNSPECIFIED; N18.9 - CHRONIC KIDNEY DISEASE, UNSPECIFIED Status: Acute Qualifiers: Acute renal failure type: with other specified pathological lesion Chronic kidney disease stage: stage 3 (moderate) Qualified Code(s): N17.8 - Other acute kidney failure; N18.3 - Chronic kidney disease, stage 3 (moderate) (3) Elevated troponin Code(s): R74.8 - ABNORMAL LEVELS OF OTHER SERUM ENZYMES Status: Resolved (4) Decubitus ulcer, stage I Code(s): L89.91 - PRESSURE ULCER OF UNSPECIFIED SITE, STAGE 1 Status: Chronic Qualifiers: Pressure injury location: buttock Laterality: unspecified laterality Qualified Code(s): L89.301 - Pressure ulcer of unspecified buttock, stage 1 (5) Failure to thrive in adult Status: Chronic - Plan Severe dementia -has been bedbound for three years -previously in hospice; revoked after patient improved -less responsive for the past couple of days -prior to additional workup/treatment, [facility] was contacted and it was decided to initiate comfort care pending hospice placement -reduced responsiveness 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 on top of baseline severe dementia -morphine PRN pain -NS/D5 -likely transition to hospice today once approved Acute renal failure superimposed on chronic kidney disease estimated GFR 10; baseline ~ 50 -likely prerenal due to reduced PO intake -NS/D5W @ 75cc/hr -considering general prognosis and decision to transition to comfort care, additional workup is futile Elevated troponin Trop ~ 0.4 and stable -likely type II NSTEMI due to severe dehydration -NS/D5W -No additional workup/treatment considering transition to comfort care -morphine PRN pain Decubitus ulcer, stage I -noninfected decubitus ulcer, stage I, on buttocks -has been dressed in the ED -clear dressing -wound care consulted Failure to thrive in adult -reported poor appetite for weeks/months; emaciated on physical exam -considering mental state, can't tolerate good PO intake, however will feed as desired due to comfort care, going to hospice -NS/D5W
[2019-05-18] MEDS ORDERED: Prevnar 13-Val Conj/PF 0.5 ML SYRINGE IM ONE (12:00)
[2019-05-18] MEDS ORDERED: FLU VACC TS2019-20(65YR UP)/PF 180 MCG/0.5 ML SYRINGE IM ONE (12:00)
[2019-05-19] MEDS: Dextrose 5 % And 0.9 % NaCl 1,000 ML IV SCH (03:54)
[2019-05-19 07:41] VITALS: BP 154/88; TEMP 98.3
--- NOTE | 2019-05-19 08:58 | PDOC.HOSPP ---
- Subjective Encounter Date: 05/19/19 Encounter Time: 10:00 Subjective: Patient a little more alert this AM. Not talking. Not eating much at all. Hospice arranged, equipment at home, ready for discharge. - Objective Vital Signs & Weight: Vital Signs (12 hours) Temp Pulse Resp BP Pulse Ox 05/19/19 07:39 98.3 F 88 16 154/88 H 99 Weight Admit Weight 83 lb 8.883 oz Weight 83 lb 8.883 oz I&O: 05/18/19 05/19/19 05/20/19 06:59 06:59 06:59 Intake Total 990 750 Balance 990 750 Result Diagrams: 05/17/19 04:04 05/17/19 04:04 Hospitalist ROS - Review of Systems ROS unobtainable: due to mental status - Medication Medications: Active Medications Generic Name Dose Route Start Last Admin Trade Name Freq PRN Reason Stop Dose Admin Dextrose/Sodium Chloride 1,000 mls @ 75 mls/hr 05/17/19 11:30 05/19/19 03:54 D5 0.9% Ns IV 1,000 mls .[id number] DAYANARA Administration - Exam General Appearance: NAD Heart: RRR, no murmur, no gallops, no rubs Respiratory: CTAB, no wheezes, no rales, no ronchi Gastrointestinal: soft, non-tender, non-distended, normal bowel sounds Musculoskeletal: generalized weakness, diffuse muscle atrophy Psychiatric: not oriented Hosp A/P (1) Severe dementia Code(s): F03.90 - UNSPECIFIED DEMENTIA WITHOUT BEHAVIORAL DISTURBANCE Status: Acute (2) Acute renal failure superimposed on chronic kidney disease Code(s): N17.9 - ACUTE KIDNEY FAILURE, UNSPECIFIED; N18.9 - CHRONIC KIDNEY DISEASE, UNSPECIFIED Status: Acute Qualifiers: Acute renal failure type: with other specified pathological lesion Chronic kidney disease stage: stage 3 (moderate) Qualified Code(s): N17.8 - Other acute kidney failure; N18.3 - Chronic kidney disease, stage 3 (moderate) (3) Decubitus ulcer, stage I Code(s): L89.91 - PRESSURE ULCER OF UNSPECIFIED SITE, STAGE 1 Status: Chronic Qualifiers: Pressure injury location: buttock Laterality: unspecified laterality Qualified Code(s): L89.301 - Pressure ulcer of unspecified buttock, stage 1 (4) Failure to thrive in adult Status: Chronic - Plan Severe dementia -has been bedbound for three years -previously in hospice; revoked after patient improved -less responsive for the past couple of days -prior to additional workup/treatment, [facility] was contacted and it was decided to initiate comfort care pending hospice placement -reduced responsiveness 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 on top of baseline severe dementia -morphine PRN pain -NS/D5 -transition to hospice today now that equipment at the home Acute renal failure superimposed on chronic kidney disease estimated GFR 10; baseline ~ 50 -likely prerenal due to reduced PO intake -NS/D5W @ 75cc/hr -considering general prognosis and decision to transition to comfort care, additional workup is futile Elevated troponin Trop ~ 0.4 and stable -likely type II NSTEMI due to severe dehydration -NS/D5W -No additional workup/treatment considering transition to comfort care -morphine PRN pain Decubitus ulcer, stage I -noninfected decubitus ulcer, stage I, on buttocks -has been dressed in the ED -clear dressing -wound care consulted Failure to thrive in adult -reported poor appetite for weeks/months; emaciated on physical exam -considering mental state, can't tolerate good PO intake, however will feed as desired due to comfort care, going to hospice -NS/D5W
--- NOTE | 2019-05-19 17:20 | DIS ---
DATE OF ADMISSION: 05/17/2019 DATE OF DISCHARGE: 05/19/2019 PRIMARY CARE PHYSICIAN: Raymond Nichols. REASON FOR ADMISSION: Acute on chronic renal failure with elevated troponin in the setting of severe dementia. DIAGNOSES AT DISCHARGE: 1. Severe dementia. 2. Acute on chronic renal failure, improved with fluids. 3. Stage I decubitus ulcer. 4. Failure to thrive in adult with severe protein-calorie malnutrition. 5. Type 2 [id number] myocardial infarction due to dehydration. PROCEDURES: None. CONSULTATIONS: None. SUMMARY OF HOSPITAL COURSE: This is an 88-year-old white female with severe dementia, brought in by EMS at family's request because the patient became less responsive, bedbound for the past 3 years, and placed in hospice a few months ago, but hospice was revoked after the patient's function had improved and she started to gain weight. The patient has not been eating well recently and significantly dropped off over the past few days and not able to interact as before. She was brought into the hospital, found to be acutely dehydrated with mild elevation of her troponin likely secondary to that. She was given IV fluid hydration, perked up a little bit, but still not eating anything. The family determined that they wanted to take her back home on hospice again, now that she has had further decline due to her dementia, and so hospice was arranged with [facility]. They did bring all the equipment out to her house today and so she is being discharged. DISCHARGE MANAGEMENT: Discharged home on hospice. ACTIVITY: As tolerated. DIET: Regular diet as tolerated. MEDICATIONS: As per hospice group. FOLLOWUP: Follow up with the hospice doctor. Job ID: [id number]
== END 2019-05-19 15:25 | disposition hospice, home (50) | DRG 682 ==
LOC: ERS 03:22 → T4-B 06:41
PROVIDERS: ADMIT Hospitalist; ATTEND Internal Medicine
DX: N17.9 Acute kidney failure, unspecified (principal); I21.A1 Myocardial infarction type 2; E43 Unspecified severe protein-calorie malnutrition; Z68.1 Body mass index [BMI] 19.9 or less, adult; K21.9 Gastro-esophageal reflux disease without esophagitis; M06.9 Rheumatoid arthritis, unspecified; F03.90 Unspecified dementia, unspecified severity, without behavioral disturbance, psychotic disturbance, mood disturbance, and anxiety; I12.9 Hypertensive chronic kidney disease with stage 1 through stage 4 chronic kidney disease, or unspecified chronic kidney disease; N18.3 Chronic kidney disease, stage 3 (moderate); E86.0 Dehydration; L89.301 Pressure ulcer of unspecified buttock, stage 1; Z96.643 Presence of artificial hip joint, bilateral; Z96.652 Presence of left artificial knee joint; Z88.8 Allergy status to other drugs, medicaments and biological substances; Z74.01 Bed confinement status; Z79.899 Other long term (current) drug therapy
CPT/HCPCS: 36415; 71045; 80053; 82553; 84484; 85025; 93005; 94760; 96361; 96374; J2270